=== PATIENT | female | born 1995 | race Caucasian/White ===

== ENCOUNTER → 2020-12-25 10:57 | Outpatient (CLI) | payer OTHER, SELFPAY ==
[2019-05-27 12:35] VITALS: BMI 25.2
[2020-12-27 13:47] LABS: HPV Reflexed? NOT INDICATED
== END ==
PROVIDERS: Visit Provider Student in an Organized Health Care Education/Training Program
DX: Z12.4 Encounter for screening for malignant neoplasm of cervix (principal)
CPT/HCPCS: 88175; G0145

== ENCOUNTER → 2022-08-21 | Outpatient (CLI) | payer OTHER, SELFPAY ==
[2022-08-21 17:03] LABS: Absolute Lymphocyte Count 2.09 X10^3/uL (0.83-4.51); Absolute Neutrophil Count 5.2 X10^3/uL (2.0-7.7); Basophil# 0.01 X10^3/uL; Basophil% 0.1 % (0-1); Eosinophil# 0.02 X10^3/uL; Eosinophils% 0.3 % (0-5); Hematocrit 38.5 % (37-47); Hemoglobin 12.9 g/dL (12.0-15.0); Lymphocyte # 2.09 X10^3/ul (0.83-4.51); Lymphocyte % 26.2 % (19-41); Mean Corp Hgb Conc 33.5 g/dL (32-36); Mean Corpuscular Hgb 29.7 pg (27.0-32.0); Mean Corpuscular Volume 88.5 fL (81-99); Monocyte# 0.62 X10^3/uL; Monocyte% 7.8 % (0-10); NRBC Flagged by Analyzer 0 % (0-5); Neutrophil # 5.21 X10^3/uL (2.7-7.7); Neutrophil % 65.1 % (47-70); Platelet Count 263 K/mm3 (150-450); RBC Distribution Width CV 12.7 % (11.6-14.6); RBC Distribution Width SD 41.5 fl (35.1-43.9); Red Blood Count 4.35 M/mm3 (4.2-5.4)
[2022-08-21 18:23] LABS: HIV - WCH Non-Reactive (Nonreactive); Hepatitis B Surface Antigen Non-Reactive (Nonreactive); Hepatitis C Antibody Non-Reactive (Nonreactive); Rubella IgG Reactive (Nonreactive); Syphilis Antibodies Non-reactive
[2022-08-23 21:23] LABS: V-Zoster IgG (Immunity) 1660 index (Immune >165)
[2022-08-24 11:08] LABS: Chlamydia By Nucleic Acid AMP Negative (Negative)
[2022-08-24 14:56] LABS: Gonococcus By Nucleic Acid AMP Negative (Negative)
== END | disposition home or self-care (01) ==
PROVIDERS: Visit Provider Student in an Organized Health Care Education/Training Program
DX: Z34.81 Encounter for supervision of other normal pregnancy, first trimester (principal)
CPT/HCPCS: 36415; 85025; 86703; 86762; 86780; 86787; 86803; 87086; 87088; 87340; 87491; 87591

== ENCOUNTER → 2022-12-17 | Outpatient (CLI) | payer OTHER, SELFPAY ==
[2022-12-17 16:37] LABS: Hematocrit 36.6 % (37-47); Hemoglobin 11.8 g/dL (12.0-15.0); Mean Corp Hgb Conc 32.2 g/dL (32-36); Mean Corpuscular Hgb 29.8 pg (27.0-32.0); Mean Corpuscular Volume 92.4 fL (81-99); Platelet Count 253 K/mm3 (150-450); RBC Distribution Width CV 13.3 % (11.6-14.6); RBC Distribution Width SD 44.6 fl (35.1-43.9); Red Blood Count 3.96 M/mm3 (4.2-5.4); White Blood Count 10.6 K/mm3 (4.4-11.0)
[2022-12-17 16:55] LABS: Glucose Challenge Gest 1H 50g 124 mg/dL (70-140)
[2022-12-17 17:18] LABS: Syphilis Antibodies Non-reactive
== END | disposition home or self-care (01) ==
PROVIDERS: Visit Provider Student in an Organized Health Care Education/Training Program
DX: Z34.82 Encounter for supervision of other normal pregnancy, second trimester (principal)
CPT/HCPCS: 36415; 82950; 85027; 86780

== ENCOUNTER → 2023-03-04 | Outpatient (CLI) | payer OTHER, SELFPAY ==
[2023-03-04 16:36] LABS: Absolute Neutrophil Count 8.2 X10^3/uL (2.0-7.7); Basophil# 0.02 X10^3/uL; Basophil% 0.2 % (0-1); Eosinophil# 0.02 X10^3/uL; Eosinophils% 0.2 % (0-5); Hematocrit 37.2 % (37-47); Hemoglobin 12.2 g/dL (12.0-15.0); Lymphocyte % 17.3 % (19-41); Mean Corp Hgb Conc 32.8 g/dL (32-36); Mean Corpuscular Hgb 29.9 pg (27.0-32.0); Mean Corpuscular Volume 91.2 fL (81-99); Mean Platelet Vol. 10.4 fl (6.2-12.0); Monocyte# 0.83 X10^3/uL; Monocyte% 7.6 % (0-10); NRBC Flagged by Analyzer 0 % (0-5); Neutrophil # 8.16 X10^3/uL (2.7-7.7); Neutrophil % 74.3 % (47-70); Platelet Count 245 K/mm3 (150-450); RBC Distribution Width CV 15.1 % (11.6-14.6); RBC Distribution Width SD 50.3 fl (35.1-43.9); Red Blood Count 4.08 M/mm3 (4.2-5.4)
[2023-03-04 17:09] LABS: Syphilis Antibodies Non-reactive
== END | disposition home or self-care (01) ==
LOC: WOBLAB 15:15
PROVIDERS: PCP Internal Medicine; Visit Provider Student in an Organized Health Care Education/Training Program
DX: Z34.83 Encounter for supervision of other normal pregnancy, third trimester (principal)
CPT/HCPCS: 36415; 85025; 86780; 87081

== ENCOUNTER 2023-04-05 00:32 | Inpatient (IN) | payer OTHER, SELFPAY ==
[2023-04-04 23:38] VITALS: BMI 29.5
[2023-04-04 23:39] VITALS: BP 126/84; PULSE 86
[2023-04-04 23:40] VITALS: PULSE 87; O2SAT 99
[2023-04-04 23:42] VITALS: TEMP 37.1
[2023-04-05] VITALS (83 sets, daily range): BP systolic 86–134; BP diastolic 48–87; PULSE 66–144; RESP 16; TEMP 36.2–37.6; O2SAT 96–100
[2023-04-05 00:30] LABS: ROM Internal Control Test YES-OK TO RESULT pt. (Internal QC)
[2023-04-05 00:31] LABS: ROM Patient Test POSITIVE (Negative); Record Kit Lot#, ROM+ K1409
[2023-04-05 01:07] LABS: Absolute Lymphocyte Count 2.09 X10^3/uL (0.83-4.51); Absolute Neutrophil Count 7.5 X10^3/uL (2.0-7.7); Basophil# 0.03 X10^3/uL; Basophil% 0.3 % (0-1); Eosinophil# 0.04 X10^3/uL; Eosinophils% 0.4 % (0-5); Hematocrit 44.3 % (37-47); Hemoglobin 14.6 g/dL (12.0-15.0); Lymphocyte # 2.09 X10^3/ul (0.83-4.51); Lymphocyte % 19.6 % (19-41); Mean Corpuscular Hgb 30.1 pg (27.0-32.0); Mean Corpuscular Volume 91.3 fL (81-99); Mean Platelet Vol. 10.7 fl (6.2-12.0); Monocyte# 0.95 X10^3/uL; Monocyte% 8.9 % (0-10); NRBC Flagged by Analyzer 0 % (0-5); Neutrophil % 70.2 % (47-70); Platelet Count 226 K/mm3 (150-450); RBC Distribution Width CV 15.1 % (11.6-14.6); RBC Distribution Width SD 50.2 fl (35.1-43.9); Red Blood Count 4.85 M/mm3 (4.2-5.4); White Blood Count 10.7 K/mm3 (4.4-11.0)
[2023-04-05] MEDS: Lactated Ringers 1,000 ML 50 ML IV (01:15)
[2023-04-05 03:07] LABS: Syphilis Antibodies Non-reactive
[2023-04-05] MEDS: LACTATED RINGERS 500 ML 999 ML IV (05:58)
--- NOTE | 2023-04-05 06:07 | HP.PCM.OB_ITS ---
History and Physical Date of Admission: 04/05/23 HPI 27-year-old G1, P0 at 41/1 weeks, GERALDINE 03/29/2023 by LMP, admitted for rupture of membranes. Patient reports rupture of membranes last evening. Reports contractions. Denies vaginal bleeding. Reports movement. Denies headache or vision changes, chest pain or shortness of breath, nausea or vomiting, diarrhea constipation, fevers or chills. 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: Current Medical history: Denies Surgical history: Denies Allergies: Penicillin causes swelling Family history: Noncontributory Medications: vitamin Social history: Denies tobacco, alcohol, drug use Review of system: Negative otherwise stated above Physical exam: Blood pressure 116/73, temp 97.6 ?F, pulse 81, pulse ox 98% on room air General: No acute distress HEENT: Normocephalic/atraumatic Cardiorespiratory: No increased effort Abdomen: Soft, nontender, gravid Extremities: Minimal edema Neurologic: Cranial nerves II through XII grossly intact, no focal deficits Musculoskeletal: Moves all extremities equally Cervical exam: 4.5 cm on last check per RN, ROM positive heart rate:135/mod riley/+accel/no decel [place]: q2-5 Assessment/plan: 27-year-old G1, P0 at 41/1 weeks, GERALDINE 03/29/2023 by LMP, admitted for rupture of membranes. ?Admit for labor. ? GBS negative ? Continue expectant management at this time. Will augment with Pitocin if needed. ? Patient for epidural.
[2023-04-05] MEDS: fentaNYL-bupivacaine (epidural) 100 ML BAG EPIDURAL ×3 (07:26→16:36)
[2023-04-05] MEDS: Oxytocin 15 Units/NS 250ml 15 UNITS/250 ML IV.SOLN 83 UNITS IV (18:20)
[2023-04-05] MEDS: Oxytocin 10 UNITS/ML Vial IM (18:20)
--- NOTE | 2023-04-05 18:36 | EX.PCM.OBRPT ---
Maternal Data Information Final GERALDINE: 03/29/23 Final GERALDINE Source: LMP Vaginal Delivery Operative Information Date of Procedure: 04/05/23 Pre-Operative Diagnosis: Spivey intrauterine Post-Operative Diagnosis: Same Surgery / Procedure Performed: Spontaneous Vaginal Delivery Type of Anesthesia: Epidural Estimated Blood Loss: 500 cc Findings Description of Procedure: Spontaneous vaginal delivery viable male. Nuchal cord x1, loose, reduced. Baby to mom. Cord clamped and cut. Spontaneous delivery of placenta. Bilateral labial lacerations repaired in the usual fashion. Second-degree laceration repaired in the usual fashion. Hemostatic. Rectal exam with intact mucosa and anal sphincter muscles. Infant A Gender: Male (1 minute): 8 (5 minute): 9 Complication Complications: None
[2023-04-05] MEDS: Ibuprofen 600 MG Tablet PO (20:18)
[2023-04-06 03:20] VITALS: BP 99/62; PULSE 83; RESP 20; TEMP 36.6; O2SAT 100
[2023-04-06 08:15] VITALS: BP 112/59; PULSE 103; RESP 18; TEMP 36.9; O2SAT 96
[2023-04-06] MEDS: Ibuprofen 600 MG Tablet PO ×2 (08:29→20:31)
--- NOTE | 2023-04-06 11:24 | PCM.PN.OB ---
Subjective Subjective Patient feeling well. Having some soreness. Working on breast-feeding. Lochia minimal. Objective Data Objective Data Vital Signs: Vital Signs Temp Pulse Resp BP Pulse Ox O2 Del Method 98.4 F 103 H 18 112/59 L 96 Room Air 04/06/23 08:15 04/06/23 08:15 04/06/23 08:15 04/06/23 08:15 04/06/23 08:15 04/06/23 08:15 Oxygen Delivery Method Room Air Weight: 75.568 kg Body Mass Index (BMI) 29.5 Intake & Output: Intake and Output for Last 24 Hours 04/04/23 04/05/23 04/06/23 23:59 23:59 23:59 Intake Total 1589.17 / 1589.17 Output Total 2400 / 2400 250 / 250 Balance -810.83 / -810.83 -250 / -250 Lab / Micro Data Attestation: I reviewed the patient's lab results. 04/05/23 00:55 Physical Exam Const alert, oriented x3 and no apparent distress HEENT normocephalic Head and Scalp: atraumatic Neck full ROM Resp normal respiratory effort Cardio regular rate GI normal to inspection, nondistended, normoactive bowel sounds GI Narrative: Uterus 2 cm below umbilicus Back/Spine normal ROM Extremity normal to inspection Extremity Narrative: Minimal pedal edema Neuro no focal motor deficits and no sensory deficits noted Psych mental status grossly normal and affect normal Assessment & Plan (1) Vaginal delivery: PLAN: day 1 status post . Feeling well. No issues overnight. Plan for discharge home tomorrow.
[2023-04-06 12:50] VITALS: BP 125/83; PULSE 106; RESP 18; TEMP 36.9; O2SAT 98
[2023-04-06 16:35] VITALS: BP 118/69; PULSE 99; RESP 17; TEMP 36.8; O2SAT 100
[2023-04-06 20:20] VITALS: BP 113/57; PULSE 94; RESP 16; TEMP 37.2; O2SAT 98
[2023-04-06] MEDS: Senna/Docusate Sodium 1 Tablet PO (20:31)
[2023-04-07 02:35] VITALS: BP 98/53; PULSE 76; RESP 16; TEMP 36.7; O2SAT 99
--- NOTE | 2023-04-07 06:48 | DS.PCM_ITS ---
Discharge Summary Date of Admission: 04/05/23 Date of Discharge: 04/07/23 Summary: Patient arrived on 04/05/2023 with spontaneous rupture membranes. Subsequently delivered vaginally on 04/05/2023. Routine recovery. Discharged home on 04/07/2023 Meaningful Use Info Meaningful Use Diagnoses (Choose all that apply): None applicable Discharge Plan Admission Admit Date/Time: 04/05/23 00:32 Primary Reason for Your Visit: Spontaneous rupture Attending Provider: Frida Noriega Primary Care Provider: Bere Rao Instructions Additional Instructions / Restrictions: Regular diet. Weightbearing as tolerated. Okay to shower. No intercourse for 6 to 8 weeks. Call if fevers, chills, chest pain, shortness of breath. Follow- up 1 week Discharge Orders/Prescriptions Prescriptions: No Action afvztmju-feu-Pp-FA 1 mg tablet 1 tab PO DAILY Referrals / Follow Up: Bere Rao MD [Primary Care Provider] - Disposition Disposition (needs filled in before D/C Order can be placed): Home, Self Care
--- NOTE | 2023-04-07 06:49 | PN.OBGYN_ITS ---
Subjective Subjective No overnight complaints Objective Data Objective Data Vital Signs: Vital Signs Temp Pulse Resp BP Pulse Ox O2 Del Method 98.1 F 76 16 98/53 L 99 Room Air 04/07/23 02:35 04/07/23 02:35 04/07/23 02:35 04/07/23 02:35 04/07/23 02:35 04/07/23 02:35 Oxygen Delivery Method Room Air Weight: 166 lb 9.6 oz Body Mass Index (BMI) 29.5 Intake & Output: Intake and Output for Last 24 Hours 04/05/23 04/06/23 04/07/23 23:59 23:59 23:59 Intake Total 1589.17 / 1589.17 Output Total 2400 / 2400 250 / 250 Balance -810.83 / -810.83 -250 / -250 Lab / Micro Data 04/05/23 00:55 Physical Exam Const alert, oriented x3, no apparent distress, average body habitus, healthy appearing and well nourished HEENT normocephalic and moist oral mucous membranes Eyes PERRL Neck full ROM Resp normal respiratory effort, no retractions and no use of accessory muscles GI GI Narrative: Soft, nontender, uterus firm and below umbilicus Extremity normal to inspection and full ROM Neuro moves all extremities and no focal motor deficits Psych mental status grossly normal, affect normal, speech normal and activity/motor behavior normal Assessment & Plan (1) Vaginal delivery: PLAN: day 2. Breast-feeding. Pain well controlled. Okay to discharge home. Patient scheduled with [facility] Dr. Judd on Friday for visit with practice closure of
--- NOTE | 2023-04-07 07:15 | NURSING ---
bedside report given to Jose Del Rio RN who is assuming care of pt at this time
[2023-04-07] MEDS: Ibuprofen 600 MG Tablet PO (07:55)
[2023-04-07 07:56] VITALS: BP 113/71; PULSE 87; RESP 15; TEMP 36.9; O2SAT 97
== END 2023-04-07 09:45 | disposition home or self-care (01) | DRG 807 ==
LOC: WPOUT 00:32 → WP 00:32
PROVIDERS: Admitting Provider Student in an Organized Health Care Education/Training Program; PCP Internal Medicine; Visit Provider Student in an Organized Health Care Education/Training Program
DX: O42.92 Full-term premature rupture of membranes, unspecified as to length of time between rupture and onset of labor (principal); Z37.0 Single live birth; O48.0 Post-term pregnancy; O69.81X0 Labor and delivery complicated by cord around neck, without compression, not applicable or unspecified; O70.1 Second degree perineal laceration during delivery; Z3A.41 41 weeks gestation of pregnancy
CPT/HCPCS: 59025; 59050; 84112; 85025; 86780; 86850; 86900; 86901; 99221; J7120; G0378

== ENCOUNTER 2024-11-04 11:24 | Inpatient (IN) | payer OTHER, SELFPAY ==
[2024-11-04] VITALS (49 sets, daily range): BP systolic 97–130; BP diastolic 50–91; PULSE 69–107; RESP 15–16; TEMP 36.1–36.7; O2SAT 97–100; BMI 28.8
[2024-11-04] MEDS: Lactated Ringers 1,000 ML 999 ML IV (11:35)
[2024-11-04 11:49] LABS: Absolute Neutrophil Count 10.5 X10^3/uL (2.0-7.7); Basophil# 0.03 X10^3/uL; Basophil% 0.2 % (0-1); Eosinophil# 0.02 X10^3/uL; Eosinophils% 0.1 % (0-5); Lymphocyte % 14.7 % (19-41); Mean Corp Hgb Conc 33.3 g/dL (32-36); Mean Corpuscular Hgb 28.1 pg (27.0-32.0); Mean Corpuscular Volume 84.3 fL (81-99); Monocyte# 0.91 X10^3/uL; Monocyte% 6.7 % (0-10); NRBC Flagged by Analyzer 0 % (0-5); Neutrophil # 10.45 X10^3/uL (2.7-7.7); Platelet Count 244 K/mm3 (150-450); RBC Distribution Width CV 13.7 % (11.6-14.6); RBC Distribution Width SD 42.1 fl (35.1-43.9); Red Blood Count 4.27 M/mm3 (4.2-5.4); White Blood Count 13.6 K/mm3 (4.4-11.0)
[2024-11-04] MEDS: fentaNYL-bupivacaine (epidural) 100 ML BAG EPIDURAL (11:57)
[2024-11-04] MEDS: Penicillin G Pot 5,000,000 UNITS in 0.9% Normal Saline (100mL MB+) 100 ML 150 UNITS IV (12:00)
[2024-11-04] MEDS: Lactated Ringers 1,000 ML 200 ML IV (12:36)
[2024-11-04 13:54] LABS: Syphilis Antibodies Nonreactive (Nonreactive)
[2024-11-04] MEDS: Oxytocin 15 Units/NS 250ml 15 UNITS/250 ML IV.SOLN 334 UNITS IV (15:49)
[2024-11-04] MEDS: Methylergonovine 0.2 MG/ML Ampul IM (15:56)
--- NOTE | 2024-11-04 16:14 | HP.PCM.OB_ITS ---
HPI - General General Date of Admission: 11/04/24 HPI Narrative KODY ALBERT, is a 29 F at 39.3 weeks gestation who presents in spontaneous labor. Maternal Data Information GERALDINE Calculator Estimated Delivery Date Method Current WG Current Estimate 11/08/24 Manual 39w 3d PFSH PFSH Home Medications ?Medication ?Instructions ?Recorded ?Last Taken ?Type fgbmvjem-urn-[id number]-FA 1 mg 1 tab PO DAILY pregna ncy 04/04/23 04/04/23 21:30 History tablet Allergy/AdvReac Type Severity Reaction Status Date / Time No Known Allergies Allergy Verified 11/04/24 12:10 Surgical History History of lingual frenulectomy Social History (Updated 05/27/19 @ 15:18 by Steven BARNHART, PA) Smoking Status: Never smoker alcohol intake: never History 1 Elective abortions Hx Para 1 Spontaneous abortions Hx # Term Pregnancies Ectopic pregnancies Hx # Pregnancies Multiple births # of living children 1 ROS Eyes Eyes: Denies blurry vision, change in vision or spots in vision ENT HEENT: Denies dizziness or headache(s) Cardiovascular Cardiovascular: Denies abdominal pain, chest pain or dyspnea Respiratory/Chest Respiratory/Chest: Denies cough, dyspnea, shortness of breath at rest or shortness of breath with exertion Gastrointestinal Gastrointestinal: Denies abdominal pain, diarrhea or vomiting Genitourinary Genitourinary: Denies change in urinary stream, difficulty urinating or dysuria Musculoskeletal Musculoskeletal: Reports none Integumentary Integumentary: Denies rash Neurologic Neurologic: Denies dizziness, headache(s), memory loss or weakness Psychiatric Psychiatric: Reports none Vital Signs Vital Signs Vital Signs: 11/04/24 11:17 11/04/24 11:17 11/04/24 11:47 Temperature Temperature Source Pulse Rate 86 Respiratory Rate Blood Pressure 130/91 H 117/60 BP Systolic 130 117 BP Diastolic 91 60 Pulse Ox 11/04/24 11:47 11/04/24 11:47 11/04/24 11:52 Temperature Temperature Source Pulse Rate 89 Respiratory Rate Blood Pressure 109/62 BP Systolic 109 BP Diastolic 62 Pulse Ox 100 11/04/24 11:52 11/04/24 11:52 11/04/24 11:57 Temperature Temperature Source Pulse Rate 69 Respiratory Rate Blood Pressure 100/51 L BP Systolic 100 BP Diastolic 51 Pulse Ox 100 11/04/24 11:57 11/04/24 11:57 11/04/24 11:57 Temperature Temperature Source Pulse Rate 74 Respiratory Rate 16 Blood Pressure BP Systolic BP Diastolic Pulse Ox 100 11/04/24 12:02 11/04/24 12:02 11/04/24 12:02 Temperature Temperature Source Pulse Rate 77 83 Respiratory Rate Blood Pressure 102/56 L BP Systolic 102 BP Diastolic 56 Pulse Ox 11/04/24 12:02 11/04/24 12:02 11/04/24 12:07 Temperature Temperature Source Pulse Rate 88 Respiratory Rate 16 Blood Pressure BP Systolic BP Diastolic Pulse Ox 100 11/04/24 12:07 11/04/24 12:08 11/04/24 12:08 Temperature Temperature Source Pulse Rate 89 Respiratory Rate Blood Pressure 108/56 L BP Systolic 108 BP Diastolic 56 Pulse Ox 100 11/04/24 12:08 11/04/24 12:12 11/04/24 12:12 Temperature Temperature Source Pulse Rate 98 Respiratory Rate 15 Blood Pressure BP Systolic BP Diastolic Pulse Ox 99 11/04/24 12:14 11/04/24 12:14 11/04/24 12:14 Temperature Temperature Source Pulse Rate 84 Respiratory Rate 16 Blood Pressure 98/55 L BP Systolic 98 BP Diastolic 55 Pulse Ox 11/04/24 12:17 11/04/24 12:17 11/04/24 12:19 Temperature Temperature Source Pulse Rate 91 Respiratory Rate Blood Pressure 99/51 L BP Systolic 99 BP Diastolic 51 Pulse Ox 99 11/04/24 12:19 11/04/24 12:19 11/04/24 12:22 Temperature Temperature Source Pulse Rate 90 Respiratory Rate 15 Blood Pressure 97/50 L BP Systolic 97 BP Diastolic 50 Pulse Ox 11/04/24 12:22 11/04/24 12:22 11/04/24 12:27 Temperature Temperature Source Pulse Rate 87 Respiratory Rate Blood Pressure 102/68 BP Systolic 102 BP Diastolic 68 Pulse Ox 99 11/04/24 12:27 11/04/24 12:27 11/04/24 12:27 Temperature Temperature Source Pulse Rate 102 H Respiratory Rate 15 Blood Pressure BP Systolic BP Diastolic Pulse Ox 99 11/04/24 12:33 11/04/24 12:33 11/04/24 13:15 Temperature Temperature Source Pulse Rate 88 Respiratory Rate Blood Pressure 114/57 L 99/59 L BP Systolic 114 99 BP Diastolic 57 59 Pulse Ox 11/04/24 13:15 11/04/24 13:15 11/04/24 15:12 Temperature 96.9 F L Temperature Source Pulse Rate 79 Respiratory Rate Blood Pressure 104/57 L BP Systolic 104 BP Diastolic 57 Pulse Ox 11/04/24 15:12 11/04/24 15:13 11/04/24 15:13 Temperature Temperature Source Temporal Pulse Rate 72 Respiratory Rate 16 Blood Pressure BP Systolic BP Diastolic Pulse Ox 11/04/24 15:13 Temperature 98.0 F Temperature Source Pulse Rate Respiratory Rate Blood Pressure BP Systolic BP Diastolic Pulse Ox Weight Weight: 157 lb 6.4 oz Body Mass Index (BMI) 28.8 Physical Exam Const alert, oriented x3 and no apparent distress General Appearance: cooperative Orientation / Consciousness: awake Exam Limitations: no limitations HEENT normocephalic Head and Scalp: normal to inspection Eyes General Eye: normal appearance of both eyes Neck full ROM and no lymphadenopathy Lymph Lymphatic: no lymphadenopathy noted Chest inspection of chest normal Resp normal respiratory effort, normal air movement and clear to auscultation bilaterally Effort and Inspection: able to speak in complete sentences and symmetric chest movement Cardio regular rate and regular rhythm GI normal to inspection, nondistended, normoactive bowel sounds Manual OB Exam: presentation cephalic Back/Spine normal ROM Extremity full ROM and no calf tenderness Skin no rashes or lesions noted General Skin Exam: no breakdown Neuro oriented x3 and CN's II-XII intact bilaterally Psych mental status grossly normal and thought process normal Labs Labs Labs: Blood Type A POSITIVE Antibody Screen NEGATIVE Hct 36.0 % (37-47) L Hgb 12.0 g/dL (12.0-15.0) Syphilis Total Ab Nonreactive (Nonreactive) VZV IgG Antibody 1660 index (Immune >165) Rubella IgG Antibody Reactive (Nonreactive) Hep Bs Antigen Non-Reactive (Nonreactive) Hepatitis C Antibody Non-Reactive (Nonreactive) Chlamydia DNA (ENRRIQUE) Negative (Negative) N.gonorrhoeae DNA (ENRRIQUE) Negative (Negative) HIV 1&2 Antibody Non-Reactive (Nonreactive) Glucose 1 Hr 50 gm 124 mg/dL (70-140) Rhogam given: No Assessment & Plan (1) Spontaneous onset of labor: (2) 39 weeks gestation of : (3) Positive GBS test: PLAN: Plan Admit to labor and delivery Routine labs Start PCN 5 million units IV x 1 now and then PCN 3 million units IV every 4 hours until delivery Epidural when indicated Anticipate Dr. Bourgeois aware of admission and is collaborating physician
--- NOTE | 2024-11-04 16:19 | EX.PCM.OBVAG ---
Assessment & Plan (1) (spontaneous vaginal delivery): (2) Spontaneous rupture of amniotic membranes: (3) Positive GBS test: (4) 39 weeks gestation of : (5) Laceration, obstetrical, second degree: Maternal Data Information GERALDINE Calculator Estimated Delivery Date Method Current WG Current Estimate 11/08/24 Manual 39w 3d Vaginal Delivery Maternal Presentation Maternal Presentation: Active Labor Maternal Presentation: at 39.3 weeks gestation that presented in sponatenous onset of labor. Vaginal Delivery Information Procedure Performed: Spontaneous Vaginal Delivery Surgeon/Practitioner: Christina Mueller Date of Procedure: 11/04/24 Pre-Procedure Diagnosis: Term gestation, Spontaneous onset of labor Post-Procedure Diagnosis: , Live female infant Type of anesthesia: Epidural Estimated Blood Loss: 300 Time of Delivery: 15:48 Findings Description of procedure: Patient SROM for clear fluid and quickly progressed to complete dilation. With good maternal effort and 1 push, head delivered followed by anterior shoulder and remainder of infant body without any force, delay, or traction. Loose nuchal cord around neck was easily reduced. Vigorous female was delivered atraumatically and placed on maternal abdomen. Pitocin IV started for active management of the third stage of labor. Increased bleeding noted. Pitocin opened wide and Methergine X1 given. Bimanual massage which made uterus firm. 3 vessel cord clamped and cut after delay and placed immediately skin to skin with patient. Placenta delivered spontaneously and intact. A second degree laceration was repaired in usual fashion using 3-0 Vicryl Rapid. Hemostasis obtained. Vaginal sweep performed. Fundus is firm 2 below U and bleeding is hemostatic. Sponge and sharps counts correct. Patient and infant bonding well at this time. Dr. Bourgeois notified of delivery. Routine post orders placed. Presentation: Vertex Amniotic Membrane Rupture Type: Spontaneous Amniotic Fluid Description: Clear Placental Delivery Description: Spontaneous Placenta Disposition: [facility] Specimen collected: No Cord Vessel Description: 3 Vessels Cord Entanglement: Around neck x 1, loose Nuchal Cord Compression: Without compression Infant A Gender: Female (1 minute): 9 (5 minute): 9 Delayed Cord Clamping: Yes Rehabilitation Counselor advertising sales agent: No Post Vaginal Deli Medications given after delivery: IV Pitocin and IM Methergin Episiotomy Description: None Laceration: 2nd degree Complication Complications: No
[2024-11-04] MEDS: Oxytocin 15 Units/NS 250ml 15 UNITS/250 ML IV.SOLN 83 UNITS IV (16:34)
[2024-11-04] MEDS: Naproxen 500 MG Tablet PO (19:26)
[2024-11-05] VITALS (7 sets, daily range): BP systolic 110–127; BP diastolic 55–64; PULSE 72–91; RESP 16–18; TEMP 35.6–36.5; O2SAT 98
[2024-11-05] MEDS: Naproxen 500 MG Tablet PO (06:48)
--- NOTE | 2024-11-05 07:04 | PCM.DC.SUM ---
Providers Date of Admission: 11/04/24 Primary Care Physician: Dr. Bere Rao MD Reason For Visit: VAGINAL DELIVERY Diagnosis Discharge Diagnosis (1) (spontaneous vaginal delivery): Status: Acute Code(s): O80 - Encounter for full-term uncomplicated delivery (2) Spontaneous rupture of amniotic membranes: Status: Acute (3) Positive GBS test: Status: Acute Code(s): B95.1 - Streptococcus, group B, as the cause of diseases classified elsewhere (4) 39 weeks gestation of : Status: Acute Code(s): Z3A.39 - 39 weeks gestation of (5) Laceration, obstetrical, second degree: Status: Acute Code(s): O70.1 - Second degree perineal laceration during delivery Plan PPD 1 Breast feeding independently Desires discharge home after 24 hours Medications at Discharge Home Medications njrpgplz-boo-Sc-FA 1 mg tablet 1 tab PO DAILY 04/04/23 acetaminophen 500 mg tablet 1,000 mg (2 x 500 mg) PO Q6H PRN PRN Pain 1-10 Or Fever #0 tabs 11/05/24 naproxen 500 mg tablet 500 mg PO Q8H PRN PRN Pain Score 1-10 #0 tabs 11/05/24 Hospital Course Operations None Procedures None Summary of Care Provided Minutes Spent on Discharge: 15 Hospital Course: Patient had vaginal delivery. Hospital course was uneventful. Physical Exam Narrative Patient seen at bedside. Denies pain. Ambulating and voiding without difficulty. Lochia decreased. Desires discharge home today. Const alert and oriented x3 General Appearance: Negative for in distress HEENT normocephalic Eyes General Eye: normal appearance of both eyes Neck General: normal visual inspection Chest Chest: symmetrical chest wall rise Resp normal respiratory effort and normal air movement Effort and Inspection: symmetric chest movement; Negative for tachypneic Auscultation: clear to auscultation bilaterally Cardio regular rate and regular rhythm Peripheral Pulses: pulses 2+ throughout GI normal to inspection, nondistended, normoactive bowel sounds Narrative: Ice to perineum OB / External & Speculum: vaginal bleeding and other Lochia decreasing Uterus Palpation: uterus fundus firm (Below U) Extremity normal to inspection, full ROM and normal capillary refill Skin no rashes or lesions noted Neuro oriented x3, CN's II-XII intact bilaterally and gait normal Psych mental status grossly normal, thought process normal and activity/motor behavior normal Weight / BMI Weight Weight: 157 lb 6.4 oz Body Mass Index (BMI) 28.8 ABG / Lab / Microbiology Data 11/04/24 11:35 Laboratory: Laboratory Results - last 24 hr 11/04/24 11:35: WBC 13.6 H, RBC 4.27, Hgb 12.0, Hct 36.0 L, MCV 84.3, MCH 28.1, MCHC 33.3, RDW Std Deviation 42.1, RDW Coeff of Nate 13.7, Plt Count 244, MPV 10.0, Immature Gran % (Auto) 1.300 H, Neut % (Auto) 77.0 H, Lymph % (Auto) 14.7 L, [place] % (Auto) 6.7, Eos % (Auto) 0.1, Baso % (Auto) 0.2, Absolute Neuts (auto) 10.5 H, Absolute Lymphs (auto) 2.00, Nucleated RBC % 0, Syphilis Total Ab Nonreactive, Blood Type A POSITIVE, Antibody Screen NEGATIVE D/C Instructions Discharge Diet: No restrictions Discharge Activity: Return to Normal Activity, No Restrictions, May Drive, May Shower and May Take a Tub Bath (Warm water only. No bath salts, soaps, bubbles) May resume sexual activity in: 6-8 weeks Weight Bearing Status: Weight bearing as tolerated Call your doctor if you observe: Fever of 101 or Higher, Inability to urinate, Using more than 1 pad per hour, Shortness of breath, Dizziness, Chest pain, Calf discomfort and Uncontrolled pain DC O2, CPAP, BIPAP Needs Home O2 Discharge instructions: No Please Follow Up With: [facility] Rom MICHAEL When: 2 weeks in office or virtual Meaningful Use Info Meaningful Use Meaningful Use Diagnoses (Choose all that apply): None applicable Ischemic Stroke Statin Dosing Therapy Reference: STATIN DOSE THERAPY REFERENCE: * Patients > 75 years receive moderate or high dose statin therapy. * Patients 75 years or YOUNGER should receive HIGH intensity statin dose unless contraindicated. You will be required to document reason for non-treatment if statin daily dose does not meet guidelines. HIGH DOSE STATIN THERAPY DAILY Atorvastatin > than or = to 40 mg Rosuvastatin > than or = to 20 mg Amlodipine + Atorvastatin > than or = to 2.5/40 mg Ezetimibe + Simvastatin 10/80 mg Simvastatin 80mg Discharge Plan Admission Admit Date/Time: 11/04/24 11:24 Primary Reason for Your Visit: Labor and Delivery Attending Provider: Christina Mueller Primary Care Provider: Bere Rao Discharge Orders/Prescriptions Prescriptions: New acetaminophen 500 mg Tablet 1,000 mg PO Q6H PRN PRN (Reason: Pain 1-10 Or Fever) Qty: 0 0RF naproxen 500 mg Tablet 500 mg PO Q8H PRN PRN (Reason: Pain Score 1-10) Qty: 0 0RF Continued doeqeyki-yms-Zp-FA 1 mg tablet 1 tab PO DAILY Referrals / Follow Up: Christina Mueller CNM [Med Staff - Adv Practice Prof] - Bere Rao MD [Primary Care Provider] - Disposition Disposition (needs filled in before D/C Order can be placed): Home, Self Care
== END 2024-11-05 17:10 | disposition home or self-care (01) | DRG 806 ==
LOC: WPOUT 11:24 → WP 12:03
PROVIDERS: Admitting Provider Advanced Practice Midwife; PCP Internal Medicine; Referring Provider Advanced Practice Midwife; Visit Provider Advanced Practice Midwife
DX: O42.92 Full-term premature rupture of membranes, unspecified as to length of time between rupture and onset of labor (principal); Z37.0 Single live birth; O98.82 Other maternal infectious and parasitic diseases complicating childbirth; B95.1 Streptococcus, group B, as the cause of diseases classified elsewhere; O70.1 Second degree perineal laceration during delivery; O69.81X0 Labor and delivery complicated by cord around neck, without compression, not applicable or unspecified; Z3A.39 39 weeks gestation of pregnancy
CPT/HCPCS: 59025; 59050; 85025; 86780; 86850; 86900; 86901; 99221; G0378